=== PATIENT | male | born 2000 | race Two or more races ===

== ENCOUNTER 2018-04-04 20:38 | Emergency (ER) | payer OTHER ==
[~2018-04-04] VITALS: Ht 185.4 cm; Wt 82.0 kg
[2018-04-04 20:49] VITALS: BP 187/73
== END 2018-04-04 21:32 | disposition home or self-care (01) ==
LOC: ED 21:25
DX: R23.8 Other skin changes (principal); Z48.01 Encounter for change or removal of surgical wound dressing
CPT/HCPCS: 99281